=== PATIENT | male | born 2000 | race African-American/Black ===

== ENCOUNTER 2025-03-26 15:52 | Emergency (ER) | payer MEDICAID ==
[~2025-03-26] VITALS: Ht 175.3 cm; Wt 92.0 kg
[2025-03-26 16:46] VITALS: BP 135/94; PULSE 102; RESP 16; TEMP 98.9; O2SAT 95
[2025-03-26] MEDS: KETOROLAC TROMETH 30 MG/ML 1ML VIAL IM ONE (17:09)
[2025-03-26] MEDS: DexAMETHasone 4 MG TAB PO ONE ×2 (17:09→17:10)
[2025-03-26] MEDS ORDERED: IBUP1TAB5 PO (17:27)
[2025-03-26] MEDS ORDERED: PENI500T2 PO (17:27)
--- NOTE | 2025-03-26 17:27 | ED.PDOC ---
Eye-HPI HPI Comments This is a pleasant 24-year-old male with no pertinent MHx that presents with a chief complaint of a sore throat x7 days. Also complains of intermittent chills that come and go. Able to get temporary relief with [id number] Tylenol or Motrin. Denies chest pain shortness of breath Denies inability to move neck, history of meningitis Denies difficulty swallowing nor persistent salivation Denies fevers chills night sweats Denies persistent cough, runny nose, congestion Denies loss of appetite, unintentional weight loss over the past 3 months Denies voice changes Denies history of asthma or seasonal allergies Chief Complaint: Sore Throat Time Seen by MD: 16:13 Reviewed Notes: Nurses Notes, Medications, Allergies Allergies: Coded Allergies: NO KNOWN ALLERGIES (Unverified , 03/26/25) Home Meds Active Scripts Ibuprofen Micronized (Ibuprofen) 600 Mg Tab, 600 MG PO TIDPRN PRN for 10 Days, #30 TAB 0 Refills Prov:CRISTOFER WASHINGTON NP 03/26/25 Penicillin V Potassium (Veetids) 500 Mg Tab, 1 TAB PO BID for 10 Days, #20 TAB 0 Refills Prov:CRISTOFER WASHINGTON WIG MAKER 03/26/25 Information Source: Patient Mode of Arrival: Ambulatory Past Medical History PAST MEDICAL HISTORY: Denies Surgical History: Denies all surgeries Family History Family History: Reviewed,noncontributory to illness Social History Smoker: Non-Smoker Alcohol: Denies ETOH Use Drugs: Denies Drug Use Lives In: Home All Other Systems: Reviewed and Negative (Per HPI) Physical Exam General Appearance: No Apparent Distress, Normal HEENT: Normal ENT Inspection, Pharyngeal Erythema (Uvula midline. Moist mucous membranes. Bilateral tonsillar exudate. No strawberry tongue. No tripod position.), TMs Normal Neck: Full Range of Motion, Non-Tender, Normal, Normal Inspection Respiratory: Chest Non-Tender, Lungs Clear, No Accessory Muscle Use, No Respiratory Distress, Normal Breath Sounds Cardiovascular: No Murmur, No Gallop, Regular Rate/Rhythm Breast Exam: Deferred Gastrointestinal: No Organomegaly, Non Tender, No Pulsatile Mass, Normal Bowel Sounds, Soft Genitalia: Deferred Pelvic: Deferred Rectal: Deferred Extremities: No calf tenderness, Normal capillary refill, Normal inspection, Normal range of motion, Non-tender, No pedal edema Musculoskeletal : Apperance: Normal Neurologic: Alert, 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 Was a procedure done?: No EENT DIFF Eye: Other Sore Throat: Pharyngitis, Streptococcal, Viral Pharyngitis X-Ray, Labs, Meds, VS Vital Signs Date Time Temp Pulse Resp B/P (MAP) Pulse Ox O2 Delivery O2 Flow Rate FiO2 03/26/25 16:46 102 16 95 Room Air 03/26/25 16:46 98.9 102 16 135/94 (108) 95 98.9 03/26/25 16:06 98.9 102 16 135/97 (110) 95 98.9 Current Medications Medications (Trade) Dose Ordered Sig/Alex Route Start Time Stop Time Status Last Admin Ketorolac Tromethamine (Toradol Injection) 30 mg ONCE ONCE IM 03/26/25 17:00 03/26/25 17:01 DC 03/26/25 17:09 Dexamethasone (Decadron Tablet) 4 mg ONCE ONCE PO 03/26/25 17:00 03/26/25 17:01 DC 03/26/25 17:09 Dexamethasone (Decadron Tablet) 6 mg ONCE ONCE PO 03/26/25 17:00 03/26/25 17:01 DC 03/26/25 17:10 X-Ray, Labs, Meds, VS Comment Patient presents with a chief complaint of a sore throat. After review of s tems and physical examination there are no no concerns or red flags for peritonsillar abscess, abscess formation, epiglottitis, retropharyngeal abscess formation or airway obstruction. No concerns for peritonsillar abscess as patient denies severe sore throat, muffled or hot potato voice, and difficulty handling secretions. No concerns for abscess formation as the soft palate is symmetrical and there is no displacement of the uvula and the uvula is also midline. No concerns for epiglottitis as patient denies severe sore throat, dysphagia, muffled voice, patient is not drooling nor is patient in tripod position. No signs of retropharyngeal abscess formation as patient has no fevers, stiff neck, drooling no stridor No signs of airway obstruction as patient denies sensation of foreign body vital signs stable on room air. Center criteria: 3 Exam/test findings consistent with strep throat infection. In the ER the patient was given 10 mg of Decadron and Toradol x1 and patient tolerated medications with the no adverse reactions. Prescribed p.o. antibiotics for presentation of symptoms. Complete course of antibiotic therapy even if symptoms improve or resolve. There should be no leftover antibiotics as this can lead to antibiotic resistant bacteria and even worse infection. Patient verbalized understanding. Encouraged fluid intake Acetaminophen to reduce pain/fever NSAIDs to reduce pain/fever Nonpharmacological recommendations given Warm salt water gargles Throat lozenges Humidified air Also advised to replace toothbrush after 3 days of antibiotic use, return to school after 24 hours of treatment (no longer contagious). On reevaluation, patient had symptomatic improvement. Patient is stable for discharge at this time. External notes reviewed. Test results and diagnostic imaging interpreted. All diagnostic findings, discharge care, education and instructions provided Follow-up with PCP in 2 to 3 days Patient verbalized understanding and agreed to treatment plan Vital signs stable, afebrile, no acute distress noted Patient ambulatory with strong steady gait Advised to return precautions for any new or worsening symptoms, return to ER immediately for re-evaluation Patient is aware that the purpose of this visit was for an acute medical emergency requiring emergent stabilization. Chronic conditions, including malignancies have not been ruled out. Patient is instructed to follow up with PCP as directed and discharge instructions for continued care and workup. If unable to arrange follow-up, patient is to return to the emergency department for reassessment. Patient (parent or legal guardian if applicable) was given verbal and written discharge instructions and acknowledges understanding. Time of 1ST Reevaluation: 17:16 Reevaluation 1ST: Improved Patient Education/Counseling: Diagnosis, Treatment Family Education/Counseling: Diagnosis, Treatment Departure 1 Departure Time of Disposition: 17:26 Impression: Primary Impression: Tonsillar exudate Additional Impression: Pharyngitis Qualified Codes: J02.9 - Acute pharyngitis, unspecified Disposition: HOME / SELF CARE / HOMELESS Condition: Fair e-Prescriptions Ibuprofen Micronized (Ibuprofen) 600 Mg Tab 600 MG PO TIDPRN PRN for 10 Days, #30 TAB 0 Refills Prov: CRISTOFER WASHINGTON NP 03/26/25 Penicillin V Potassium (Veetids) 500 Mg Tab 1 TAB PO BID for 10 Days, #20 TAB 0 Refills Prov: CRISTOFER WASHINGTON NP 03/26/25 Critical Care Note Critical Care Time?: No Stability Stability form required: No Heart Score Heart Score: Heart Score Response (Comments) Value History N/A 0 EKG N/A 0 Age N/A 0 Risk Factors N/A 0 Troponin N/A 0 Total 0 CRISTOFER WASHINGTON NP Mar 26, 2025 17:27
== END 2025-03-26 17:37 | disposition home or self-care (01) ==
LOC: ER 15:52
DX: J03.90 Acute tonsillitis, unspecified (principal)
CPT/HCPCS: 96372; 99283; J1885; J8540

== ENCOUNTER 2025-10-30 14:00 | Emergency (ER) | payer MEDICAID ==
[~2025-10-30] VITALS: Ht 175.3 cm; Wt 96.4 kg
[~2025-10-30 14:00] MED LIST: IBUP1TAB5 PO; PENI500T2 PO
--- NOTE | 2025-10-30 15:06 | ED.PDOC ---
Eye-HPI HPI Comments 35-year-old male that presents to the ED chief complaint of sore throat. Patient has been having sore throat and cough for the past four days. Patient states he has been taking DayQuil NyQuil and other [id number] medication was added has not been helping. Patient otherwise states that he lost his three days ago states denies it has been a more severe sore throat four days prior. Patient has sick contacts of family at home. Chief Complaint: Sore Throat Time Seen by MD: 15:04 Reviewed Notes: Medications, Allergies Allergies: Coded Allergies: NO KNOWN ALLERGIES (Unverified , 03/26/25) Home Meds Active Scripts Methylprednisolone (Medrol Dosepak) 4 Mg Tru, 4 MG PO UD for 7 Days, #21 TAB 0 Refills UAD Prov:CRISTOFER WASHINGTON NP 10/30/25 Ibuprofen Micronized (Ibuprofen) 800 Mg Tab, 800 MG PO Q8HP PRN for 10 Days, #30 TAB 0 Refills Prov:CRISTOFER WASHINGTON NP 10/30/25 Ibuprofen Micronized (Ibuprofen) 600 Mg Tab, 600 MG PO TIDPRN PRN for 10 Days, #30 TAB 0 Refills Prov:CRISTOFER WASHINGTON NP 03/26/25 Penicillin V Potassium (Veetids) 500 Mg Tab, 1 TAB PO BID for 10 Days, #20 TAB 0 Refills Prov:CRISTOFER WASHINGTON NP 03/26/25 Information Source: Patient Mode of Arrival: Ambulatory Brought in by: Self Past Medical History PAST MEDICAL HISTORY: Denies Surgical History: Denies all surgeries Family History Family History: Reviewed,noncontributory to illness Social History Smoker: Non-Smoker Alcohol: Denies ETOH Use Drugs: Denies Drug Use Lives In: Home Constitutional: denies: chills, diaphoresis, fatigue, fever, malaise, sweats, weakness, others EENTM: reports: throat pain, throat swelling; denies: blurred vision, double vision, ear bleeding, ear discharge, ear drainage, ear pain, ear ringing, eye pain, eye redness, hearing loss, mouth pain, mouth swelling, nasal discharge, nose bleeding, nose congestion, nose pain, photophobia, tearing, voice changes, others Respiratory: denies: cough, hemoptysis, orthopnea, SOB at rest, shortness of breath, SOB with excertion, stridor, wheezing, others Cardiovascular: denies: chest pain, dizzy spells, diaphoresis, Dyspnea on exertion, edema, irregular heart beat, left arm pain, lightheadedness, palpitations, PND, syncope, others Gastrointestinal: denies: abdomen distended, abdominal pain, blood streaked bowels, constipated, diarrhea, dysphagia, difficulty swallowing, hematemesis, melena, nausea, poor appetite, poor fluid intake, rectal bleeding, rectal pain, vomiting, others Genitourinary: denies: burning, dysuria, flank pain, frequency, hematuria, incontinence, penile discharge, penile sore, pain, testicle pain, testicle swelling, urgency, others Neurological: denies: dizziness, fainting, headache, left sided numbness, left sided weakness, numbness, paresthesia, pre-existing deficit, right sided numbn ess, right sided weakness, seizure, speech problems, tingling, tremors, weakness, others Musculoskeletal: denies: back pain, gout, joint pain, joint swelling, muscle pain, muscle stiffness, neck pain, others Integumetry: denies: bruises, change in color, change in hair/nails, dryness, laceration, lesions, lumps, rash, wounds, others Allergic/Immunocompromised: denies: Difficulty Healing, Frequent Infections, Hives, Itching, others Hematologic/Lymphatic: denies: anemia, blood clots, easy bleeding, easy bruising, swollen glands, others Endocrine: denies: excessive hunger, excessive sweating, excessive thirst, excessive urination, flushing, intolerance to cold, intolerance to heat, unexplained weight gain, unexplained weight loss, others Psychiatric: denies: anxiety, bipolar disorder, depression, hopeless, panic disorder, schizophrenia, sleepless, suicidal, others All Other Systems: Reviewed and Negative Physical Exam General Appearance: No Apparent Distress, Normal HEENT: Other (Uvula midline, no obstruction, no exudates) Neck: Full Range of Motion, Non-Tender, Normal, Normal Inspection Respiratory: Chest Non-Tender, Lungs Clear, No Accessory Muscle Use, No Respiratory Distress, Normal Breath Sounds Cardiovascular: No Edema, No JVD, No Murmur, No Gallop, Normal Peripheral Pulses, Regular Rate/Rhythm Breast Exam: Deferred Gastrointestinal: No Organomegaly, Non Tender, No Pulsatile Mass, Normal Bowel Sounds, Soft Genitalia: Deferred Pelvic: Deferred Rectal: Deferred Extremities: No calf tenderness, Normal capillary refill, Normal inspection, Normal range of motion, Non-tender, No pedal edema Musculoskeletal : Apperance: Normal Neurologic: Alert, 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 Was a procedure done?: No EENT DIFF Eye: Other Sore Throat: Pharyngitis, Streptococcal, Viral Pharyngitis, URI X-Ray, Labs, Meds, VS Vital Signs Date Time Temp Pulse Resp B/P (MAP) Pulse Ox O2 Delivery O2 Flow Rate FiO2 10/30/25 16:26 98.2 78 16 132/78 (96) 97 98.2 10/30/25 16:26 78 16 97 Room Air 10/30/25 14:01 98.2 95 16 135/95 94 98.2 Lab Test 10/30/25 15:12 Range/Units Group A Streptococcus Rapid Negative Microbiology Date/Time Source Procedure Growth Status 10/30/25 15:12 Throat Nose/Throat Culture - Final Streptococcus Group C Complete X-Ray, Labs, Meds, VS Comment Patient arrives alert and oriented, ABC's intact, afebrile, vital signs stable, saturating well in room air Group a strep culture NEG PATIENT PRESENTS WITH A CHIEF COMPLAINT OF A SORE THROAT. AFTER REVIEW OF SYSTEMS AND PHYSICAL EXAMINATION THERE ARE NO NO CONCERNS OR RED FLAGS FOR PERITONSILLAR ABSCESS, ABSCESS FORMATION, EPIGLOTTITIS, RETROPHARYNGEAL ABSCESS FORMATION OR AIRWAY OBSTRUCTION. NO CONCERNS FOR PERITONSILLAR ABSCESS PATIENT DENIES SEVERE SORE THROAT, MUFFLED OR HOT POTATO VOICE, AND DIFFICULTY HANDLING SECRETIONS. NO CONCERNS FOR ABSCESS FORMATION THE SOFT PALATE IS SYMMETRICAL AND THERE IS NO DISPLACEMENT OF THE UVULA AND THE UVULA IS ALSO MIDLINE. NO CONCERNS FOR EPIGLOTTITIS PATIENT DENIES SEVERE SORE THROAT, DYSPHAGIA, MUFFLED VOICE, PATIENT IS NOT DROOLING NOR IS PATIENT IN TRIPOD POSITION. NO SIGNS OF RETROPHARYNGEAL ABSCESS FORMATION PATIENT HAS NO FEVERS, STIFF NECK, DROOLING NO STRIDOR NO SIGNS OF AIRWAY OBSTRUCTION PATIENT DENIES SENSATION OF FOREIGN BODY VITAL SIGNS STABLE ON ROOM AIR. Additional MDM Review of External, Non-ED records: External records reviewed. Discussion with independent historian (EMS, family) history obtained from the patient/parents (if applicable) at bedside Chronic conditions affecting care: None Social determinants of health affecting care: None Consideration of admission (observation or admission): I considered escalation of care to admission for this patient, however given the reassuring workup, the patient is safe for outpatient management. Discussion with the Radiology: No Tests considered but not performed: Prescription medication considered but not given: 12 lead EKG interpretation: Time of 1ST Reevaluation: 15:35 Reevaluation 1ST: Unchanged Patient Education/Counseling: Diagnosis, Treatment Family Education/Counseling: No Family Present SEPSIS Sepsis Screen Date sepsis recognized/suspect: Oct 30, 2025 Time Sepsis recognized/suspect: 140 Recent Procedure: No On Antibiotic Therapy: No Respiratory Rate >20: No Heart Rate >90: No Temp<36 C (96.8 F) or >38.3 C: No SBP <90 or MAP <65 mmHG: No New Acute Mental Status Change: No Is the patient on CPAP, BIPAP,: No Vital Signs Date Time Temp Pulse Resp B/P (MAP) Pulse Ox O2 Delivery O2 Flow Rate FiO2 10/30/25 16:26 98.2 78 16 132/78 (96) 97 98.2 10/30/25 16:26 78 16 97 Room Air 10/30/25 14:01 98.2 95 16 135/95 94 98.2 Departure 1 Departure Time of Disposition: 15:39 Impression: Primary Impression: Viral pharyngitis Disposition: HOME / SELF CARE / HOMELESS Condition: Stable e-Prescriptions Methylprednisolone (Medrol Dosepak) 4 Mg Tru 4 MG PO UD for 7 Days, #21 TAB 0 Refills UAD Prov: CRISTOFER WASHINGTON NP 10/30/25 Ibuprofen Micronized (Ibuprofen) 800 Mg Tab 800 MG PO Q8HP PRN for 10 Days, #30 TAB 0 Refills Prov: CRISTOFER WASHINGTON NP 10/30/25 Critical Care Note Critical Care Time?: No Stability Stability form required: No Heart Score Heart Score: Heart Score Response (Comments) Value History N/A 0 EKG N/A 0 Age N/A 0 Risk Factors N/A 0 Troponin N/A 0 Total 0 I personally scribed for CRISTOFER WASHINGTON NP ([email or web address]) on 10/30/25 at 15:06. Electronically submitted by Edilson Egan ([email or web address]). CRISTOFER WASHINGTON NP Oct 30, 2025 15:06
[2025-10-30 15:36] LABS: Rapid Strep A Screen-Throat Negative
[2025-10-30] MEDS ORDERED: IBUP-1455 PO (15:40)
[2025-10-30] MEDS ORDERED: METH4PAK PO (15:40)
[2025-10-30 16:26] VITALS: BP 132/78; PULSE 78; RESP 16; TEMP 98.2; O2SAT 97
== END 2025-10-30 16:27 | disposition home or self-care (01) ==
LOC: ER 14:00
DX: J02.8 Acute pharyngitis due to other specified organisms (principal); B97.89 Other viral agents as the cause of diseases classified elsewhere; Z79.899 Other long term (current) drug therapy
CPT/HCPCS: 87070; 87077; 87880